=== PATIENT | female | born 1935 | race Caucasian/White ===

== ENCOUNTER → 2017-02-28 | Outpatient (CLI) | payer MEDICARE, OTHER | END | disposition home or self-care (01) | LOC: BFHH 14:28 | PROVIDERS: ATTEND General Practice | DX: D64.9 Anemia, unspecified (principal) ==

== ENCOUNTER → 2017-03-19 | Outpatient (CLI) | payer MEDICARE, OTHER | END | disposition home or self-care (01) | LOC: BFHOS 15:12 | PROVIDERS: ATTEND General Practice | DX: Z79.01 Long term (current) use of anticoagulants (principal); D64.9 Anemia, unspecified ==

== ENCOUNTER → 2017-04-09 | Outpatient (CLI) | payer MEDICARE, OTHER | END | disposition home or self-care (01) | LOC: BFHOS 12:21 | PROVIDERS: ATTEND General Practice | DX: D64.9 Anemia, unspecified (principal); R53.1 Weakness ==